=== PATIENT | female | born 1955 | race Caucasian/White ===

== ENCOUNTER 2024-03-15 15:05 | Emergency (ER) | payer OTHER ==
[2024-03-15 15:15] VITALS: BP 136/77; PULSE 96; RESP 18; TEMP 98.6; BMI 29.0
[2024-03-15] MEDS ORDERED: ACETAMINOPHEN INJECTION 100 ML IVPB ONE (15:46)
[2024-03-15] MEDS ORDERED: ONDANSETRON 4 MG/2 ML VIAL ONE (15:46)
[2024-03-15] MEDS ORDERED: FAMOTIDINE 20 MG/50 ML IVPB 20 MG/50 ML MG IVPB ONE (15:49)
[2024-03-15] MEDS: SODIUM CHLORIDE 0.9% 500 ML INFUS.BAG IV ONE (16:15)
[2024-03-15] MEDS: ACETAMINOPHEN 1000 MG/100 ML BAG IVPB ONE (16:15)
[2024-03-15] MEDS: FAMOTIDINE 20 MG/50 ML IVPB 20 MG/50 ML MG IVPB ONE (16:16)
[2024-03-15] MEDS: ONDANSETRON 4 MG/2 ML VIAL IVPUSH ONE (16:16)
[2024-03-15 16:26] LABS: BASO % 0.7 % (0-2.0); EOS % 1.3 % (0-4.5); HEMATOCRIT 44.1 % (32.4-45.2); HEMOGLOBIN 15.1 GM/dL (10.7-15.3); LYMPH % 32.9 % (8-40); MCH 29.4 pg (25.7-33.7); MCHC 34.2 g/dl (32.0-36.0); MEAN PLT VOLUME 7.6 fl (7.5-11.1); MONO % 11.1 % (3.8-10.2); PLATELET COUNT 293 10^3/uL (134-434); RBC 5.13 M/mm3 (3.60-5.2); RDW 13.9 % (11.6-15.6)
[2024-03-15] MEDS ORDERED: SUCRALFATE 1 GM TABLET (FP) ONE (17:30)
[2024-03-15] MEDS ORDERED: MAG HYDROX/AL HYDROX/SIMETH 30 ML UNIT-DOSE CUP ONE (17:31)
[2024-03-15 17:35] LABS: POTASSIUM 3.5 mmol/L (3.5-5.1)
[2024-03-15 17:37] LABS: BLOOD UREA NITROGEN 19.8 mg/dL (7-18); CALCIUM 12.5 mg/dL (8.5-10.1); MAGNESIUM 1.8 mg/dL (1.8-2.4)
[2024-03-15 17:38] LABS: ALBUMIN 4.1 g/dl (3.4-5.0)
[2024-03-15] MEDS: MAG HYDROX/AL HYDROX/SIMETH 30 ML UNIT-DOSE CUP PO ONE (17:38)
[2024-03-15] MEDS: SUCRALFATE 1 GM TABLET (FP) PO ONE (17:38)
[2024-03-15 17:40] LABS: CREATININE 1.3 mg/dL (0.55-1.3)
[2024-03-15 17:42] LABS: TOT PROT 7.5 g/dl (6.4-8.2)
[2024-03-15 17:45] LABS: BILIRUBIN,TOTAL 1.2 mg/dL (0.2-1)
== END 2024-03-15 20:59 | disposition home or self-care (01) ==
LOC: JER 15:05
PROC: 3E033GC Introduction of Other Therapeutic Substance into Peripheral Vein, Percutaneous Approach (ICD-10-PCS; principal; 2024-03-15)
PROC: 3E030NZ Introduction of Analgesics, Hypnotics, Sedatives into Peripheral Vein, Open Approach (ICD-10-PCS; 2024-03-15)
PROC: 3E030GC Introduction of Other Therapeutic Substance into Peripheral Vein, Open Approach (ICD-10-PCS; 2024-03-15)
DX: K21.9 Gastro-esophageal reflux disease without esophagitis (principal); K80.20 Calculus of gallbladder without cholecystitis without obstruction; R11.2 Nausea with vomiting, unspecified; R10.13 Epigastric pain
CPT/HCPCS: 36415; 74177-TC; 76705-TC; 80053; 83605; 83690; 83735; 84484; 85025; 93005; 93010; 96365; 96375; 99285-25; J0131; Q9967

== ENCOUNTER 2024-06-08 04:28 | Day surgery (SDC) | payer OTHER ==
[2024-06-07 15:22] VITALS: BMI 28.6
[2024-06-08] MEDS ORDERED: ONDANSETRON 4 MG/2 ML VIAL IVPUSH PRN (10:51)
[2024-06-08] MEDS ORDERED: LACTATED RINGERS SOLUTION 1,000 ML IV SCH (11:00)
[2024-06-08] MEDS ORDERED: INDOCYANINE GREEN 25 MG/10 ML VIAL IVPUSH ONE (11:23)
[2024-06-08] MEDS ORDERED: cefOXitin SODIUM 2 GM VIAL (RESTRICTED TO ID) IVPB ONE (11:24)
[2024-06-08] MEDS ORDERED: MIDAZOLAM HCL 2 MG/2 ML SINGLE DOSE VIAL ONE (11:46)
[2024-06-08] MEDS ORDERED: PROPOFOL 40 ML ONE (11:51)
[2024-06-08] MEDS ORDERED: ROCURONIUM BROMIDE 50 MG/5 ML SYRINGE ONE (11:51)
[2024-06-08] MEDS: cefOXitin SODIUM 2 GM VIAL (RESTRICTED TO ID) IVPB ONE (12:00)
[2024-06-08] MEDS: BUPIVACAINE HCL/PF 0.25% (2.5MG/ML) 10 ML VIAL IJ ONE (13:19)
[2024-06-08] MEDS ORDERED: ACETAMINOPHEN INJECTION 100 ML IVPB ONE (13:31)
[2024-06-08] MEDS: ACETAMINOPHEN 1000 MG/100 ML BAG IVPB ONE (13:32)
[2024-06-08] MEDS ORDERED: SUGAMMADEX SODIUM 200 MG/2 ML VIAL ONE ×3 (13:34→14:03)
[2024-06-08 17:42] VITALS: RESP 18
[2024-06-08 18:06] VITALS: BP 123/71; PULSE 83; TEMP 98.7
== END 2024-06-08 18:15 | disposition home or self-care (01) ==
LOC: JASU-SURG 04:28
PROVIDERS: ATTEND Surgery
PROC: 0FT44ZZ Resection of Gallbladder, Percutaneous Endoscopic Approach (ICD-10-PCS; principal; 2024-06-08 10:30)
PROC: 0DQV4ZZ Repair Mesentery, Percutaneous Endoscopic Approach (ICD-10-PCS; 2024-06-08 10:30)
DX: K80.20 Calculus of gallbladder without cholecystitis without obstruction (principal); K42.9 Umbilical hernia without obstruction or gangrene
CPT/HCPCS: 47562; 49591; S2900; 82962; 86850; 86900; 86901; 88304-TC; 94760; J0131